=== PATIENT | female | born 1985 | race American Indian/Alaskan Native ===

== ENCOUNTER 2018-04-07 07:28 | Emergency (ER) | payer OTHER, BC ==
[2018-04-07 07:37] VITALS: BMI 26.6
[2018-04-07 07:38] VITALS: RESP 17; O2SAT 99
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
[2018-04-07 10:22] VITALS: BP 115/76; PULSE 74; TEMP 97.8
== END 2018-04-07 10:10 | disposition home or self-care (01) ==
LOC: ED 07:28
DX: S13.4XXA Sprain of ligaments of cervical spine, initial encounter (principal); V49.9XXA Car occupant (driver) (passenger) injured in unspecified traffic accident, initial encounter